=== PATIENT | female | born 1990 | race Caucasian/White ===

== ENCOUNTER 2019-06-08 20:05 | Emergency (ER) | payer MEDICAID ==
[~2019-06-08] VITALS: Ht 160 cm; Wt 68.0 kg
[2019-06-08 20:10] VITALS: BP 132/78
--- NOTE | 2019-06-08 20:10 | NUR ---
TO BED # 09 AMBULATORY
--- NOTE | 2019-06-08 20:35 | NUR ---
LYING ON SIDE IN BED WRAPPED IN BLANKET WITH AT BEDSIDE. EASILY AROUSABLE TO VERBAL STIMULI. SITS UP WITHOUT DIFFICULTY. COOPERATIVE. AMBULATES TO RR WITH STEADY GAIT IN UPRIGHT POSITION.
--- NOTE | 2019-06-08 20:37 | NUR ---
DR. GOLDIE VIRAMONTES AT BEDSIDE.
--- NOTE | 2019-06-08 20:52 | NUR ---
PHLEB AT BEDSIDE DRAWING LABS.
--- NOTE | 2019-06-08 20:53 | NUR ---
US AT BEDSIDE.
[2019-06-08 21:17] LABS: HEMATOCRIT 37.9 % (36-48); HEMOGLOBIN 12.6 g/dL (12.0-16.0); MEAN CORPUSCULAR VOLUME 90.1 fL (80-94); WHITE BLOOD COUNT (AUTO) 13.2 K/uL (4.8-10.8)
[2019-06-08 21:18] LABS: MEAN CORPUSCULAR HEMOGLOBIN 90 pg (27-31); MEAN CORPUSCULAR HGB CONC 30 g/dL (33-37); PLATELET COUNT (AUTO) 239 K/uL (140-450)
[2019-06-08 21:19] LABS: BASOPHILS % (AUTO) 0.4 % (0.0-2.0); EOSINOPHILS # (AUTO) 0.2 K/uL (0-0.4); EOSINOPHILS % (AUTO) 1.3 % (0.0-4.0); LYMPHOCYTES % (AUTO) 22.6 % (20.5-51.1); MONOCYTES # (AUTO) 1.1 K/uL (0.8-1.0); MONOCYTES % (AUTO) 8.2 % (1.7-9.3); NEUTROPHILS # (AUTO) 8.9 K/uL (1.8-7.7); NEUTROPHILS % (AUTO) 67.5 % (42.2-75.2)
[2019-06-08 21:33] LABS: CARBON DIOXIDE 25.7 mmol/L (21-32); CREATININE 0.6 mg/dL (0.6-1.3); TOTAL BILIRUBIN 0.4 mg/dL (0.0-1.0)
[2019-06-08 21:34] LABS: ALBUMIN 3.2 g/dL (3.4-5.0)
[2019-06-08 21:39] LABS: ANION GAP 14.1 (8-16); POTASSIUM 3.8 mmol/L (3.5-5.1)
[2019-06-08] MEDS ORDERED: NITROFURANTOIN 100 MG CAP PO ONE (21:45)
[2019-06-08 22:09] LABS: APPEARANCE,URINE HAZY (CLEAR); BILIRUBIN,URINE NEGATIVE (NEGATIVE); BLOOD, URINE TRACE (NEGATIVE); COLOR,URINE STRAW (YELLOW); LEUKOCYTE ESTERASE ,URINE 3+ (NEGATIVE); NITRITE, URINE NEGATIVE (NEGATIVE); UGLUCOSE NEGATIVE (NEGATIVE)
[2019-06-08 22:10] LABS: RBC,URINE 0-5 /HPF (0-5)
[2019-06-08 22:15] VITALS: BP 112/62
--- NOTE | 2019-06-08 22:15 | NUR ---
Patient discharged with v/s stable. Written and verbal after care instructions given and explained. Pt instructed to take all antibiotics as prescribed. Pt encouraged to stay hydrated and eat a diet high in fiber. Patient alert, oriented and verbalized understanding of instructions. Ambulatory with steady gait. All questions addressed prior to discharge. ID band removed. Patient advised to follow up with PMD. Rx of HYDROCORTISONE ACETATE 25MG, MACROBID CAPSULE 1 CAP WAS given. Patient educated on indication of medication including possible reaction and side effects. Opportunity to ask questions provided and answered.
== END 2019-06-08 22:15 | disposition home or self-care (01) ==
LOC: MED 20:05
DX: O23.41 Unspecified infection of urinary tract in pregnancy, first trimester (principal); O22.41 Hemorrhoids in pregnancy, first trimester; K64.4 Residual hemorrhoidal skin tags; K59.00 Constipation, unspecified; Z3A.14 14 weeks gestation of pregnancy
CPT/HCPCS: 36415; 76805; 80053; 81001; 84702; 85025; 86900; 86901; 87086; 99284; Q0092

== ENCOUNTER 2020-08-22 23:45 | Emergency (ER) | payer MEDICAID ==
[~2020-08-22] VITALS: Ht 160 cm; Wt 63.5 kg
[2020-08-22 23:49] VITALS: BP 125/97
--- NOTE | 2020-08-22 23:49 | NUR ---
TO BED AMBULATORY
[2020-08-23] MEDS ORDERED: ACETAMINOPHEN 325 MG TAB PO ONE (00:10)
[2020-08-23] MEDS ORDERED: NACL 0.9% 1,000 ML IV ONE (00:20)
[2020-08-23 00:33] LABS: BASOPHILS # (AUTO) 0.1 K/uL (0.00-0.22); BASOPHILS % (AUTO) 0.9 % (0.0-2.0); EOSINOPHILS # (AUTO) 0.1 K/uL (0-0.4); EOSINOPHILS % (AUTO) 0.7 % (0.0-4.0); HEMATOCRIT 37.8 % (36-48); HEMOGLOBIN 12.8 g/dL (12.0-16.0); LYMPHOCYTES # (AUTO) 3.1 K/uL (2.5-16.5); LYMPHOCYTES % (AUTO) 27.9 % (20.5-51.1); MEAN CORPUSCULAR HEMOGLOBIN 30 pg (27-31); MEAN CORPUSCULAR HGB CONC 34 g/dL (33-37); MEAN CORPUSCULAR VOLUME 88.5 fL (80-94); MONOCYTES # (AUTO) 0.9 K/uL (0.8-1.0); MONOCYTES % (AUTO) 7.8 % (1.7-9.3); NEUTROPHILS % (AUTO) 62.7 % (42.2-75.2); PLATELET COUNT (AUTO) 290 K/uL (140-450); RED BLOOD CELL COUNT(AUTO) 4.27 MIL/uL (4.20-5.40); RED CELL DISTRIBUTION WIDTH 12.8 % (11.6-13.7); WHITE BLOOD COUNT (AUTO) 11.1 K/uL (4.8-10.8)
[2020-08-23 00:52] LABS: ALBUMIN 3.8 g/dL (3.4-5.0); ANION GAP 14.9 (8-16); CARBON DIOXIDE 24.8 mmol/L (21-32); CREATININE 0.6 mg/dL (0.6-1.3); POTASSIUM 3.7 mmol/L (3.5-5.1)
[2020-08-23 00:52] LABS: APPEARANCE,URINE CLEAR (CLEAR); BILIRUBIN,URINE NEGATIVE (NEGATIVE); BLOOD, URINE 1+ (NEGATIVE); COLOR,URINE YELLOW (YELLOW); LEUKOCYTE ESTERASE ,URINE NEGATIVE (NEGATIVE); NITRITE, URINE NEGATIVE (NEGATIVE); UGLUCOSE NEGATIVE (NEGATIVE)
[2020-08-23 01:06] LABS: RBC,URINE 0-5 /HPF (0-5); WBC,URINE 0-5 /HPF (0-5)
[2020-08-23] MEDS ORDERED: cephALEXin 500 MG CAP PO ONE (01:15)
--- NOTE | 2020-08-23 02:18 | NUR ---
Patient discharged with v/s stable. Written and verbal after care instructions given and explained. Patient alert, oriented and verbalized understanding of instructions. Ambulatory with steady gait. All questions addressed prior to discharge. ID band removed. Patient advised to follow up with PMD. Rx of KEFLEX given. Patient educated on indication of medication including possible reaction and side effects. Opportunity to ask questions provided and answered. IV removed, catheter intact and site benign. Applied folded 4x4 gauze and tape to stop bleeding.
[2020-08-23 02:19] VITALS: BP 122/88
== END 2020-08-23 02:19 | disposition home or self-care (01) ==
LOC: MED 23:45
DX: O23.41 Unspecified infection of urinary tract in pregnancy, first trimester (principal); O46.8X1 Other antepartum hemorrhage, first trimester; Z3A.01 Less than 8 weeks gestation of pregnancy
CPT/HCPCS: 36415; 76770; 76801; 80053; 81001; 81025; 84702; 85025; 87086; 96360; 99285; J7030